=== PATIENT | female | born 1995 | race Caucasian/White ===

== ENCOUNTER → 2024-07-29 10:41 | Outpatient (CLI) | payer OTHER, SELFPAY ==
--- NOTE | 2024-07-29 10:46 | DI.US.S_ITS ---
PROCEDURE: US PELVIC COMPLETE INDICATIONS: PAIN TECHNIQUE: Real-time scanning was performed of the pelvic organs, with image documentation. Additional endovaginal scanning was necessary due to incomplete visualization of the adnexal and endometrial structures by transabdominal scanning. COMPARISON: None. FINDINGS: Uterus: Uterus is anteverted and normal in size at 7.1 x 4.6 x 3.0 cm. The myometrium is homogeneous. The endometrium measures 3.1 mm combined thickness. Trace endometrial fluid with internal echoes, may represent blood product. Multiple endometrial calcifications measuring up to 2 mm. Prominent myometrial veins measuring up to 2 mm, nonspecific. Ovaries: The right ovary measures 3.9 x 3.0 x 2.9 cm, with a calculated ovarian volume of 17.8 cc. Likely right ovarian corpus luteal cyst measuring 2.2 x 1.9 x 1.9 cm. The left ovary measures 3.8 x 2.4 x 1.5 cm, with a calculated ovarian volume of 6.9 cc. The ovaries have a normal sonographic appearance. Less than 12 follicles can be seen in each ovary. No adnexal masses are seen. Other: No pathologic free abdominal or pelvic fluid. IMPRESSION: Right ovarian likely corpus luteal cyst measuring 2.2 cm. Ovaries are otherwise normal in appearance. Endometrium is normal in thickness with small calcifications. Trace fluid within the endometrium, may represent blood product. We strive to produce accurate, complete, and clear reports of imaging services. To assist us in improving patient care, this report was composed using standard report templates and voice recognition software. Therefore, it may contain abnormal punctuation, insertions and/or omissions. Occasional wrong-word or sound-alike substitutions may occur. Though we review the report and make efforts to correct it, we do recommend that the report be read carefully in proper context to recognize any text inaccuracies. Dictated by: Darien Kim M.D. on 07/29/2024 at 15:02 Approved by: Darien Kim M.D. on 07/29/2024 at 15:05
[2024-08-01 03:38] LABS: Chlamydia trachomatis NAA Negative (Negative); Neisseria gonorrhoeae NAA Negative (Negative)
== END ==
PROVIDERS: Referring Provider Advanced Practice Midwife; Visit Provider Advanced Practice Midwife
DX: N74 Female pelvic inflammatory disorders in diseases classified elsewhere (principal); R10.2 Pelvic and perineal pain; N72 Inflammatory disease of cervix uteri
CPT/HCPCS: 76830; 76856; 87491; 87591